=== PATIENT | male | born 1950 | race Caucasian/White ===

== ENCOUNTER 2025-03-27 08:20 | Emergency (ER) | payer MEDICARE, OTHER, SELFPAY ==
[2025-03-27 08:31] VITALS: BP 130/61; PULSE 84; RESP 18; TEMP 36.4; O2SAT 96; BMI 22.4
--- NOTE | 2025-03-27 08:47 | ED_ITS ---
HPI - Male Genitourinary General Chief complaint: Urogenital-Male Stated complaint: Possible UTI x 4 Months Time Seen by Provider: 03/27/25 08:29 Source: patient Mode of arrival: Ambulatory History of Present Illness HPI Narrative: Patient is from [facility]. He sees a fermenter champagne for AFib, is on Eliquis. Patient sees a urologist there as well for BPH. Patient denies any history of prostate cancer. Patient complains of urinary frequency and urgency for the past 4 months. He was on antibiotics by his urologist 3 months ago. He saw no improvement. He has never had a cystoscopy. No prostate biopsy. No fever weight loss. No chills. Patient is on Flomax and Cialis. Prescribed by his urologist. Patient had cardiac ablation 3 months ago in [place] for AFib. Patient denies any hematuria. Patient states that if he drinks 48 oz of fluid a day he is urinating a lot without any discomfort. However feet does not drink as much then he will have continue frequency and urgency but now has dysuria with it. Related Data Previous Rx's Medication Instructions Recorded cefdinir 300 mg capsule 300 mg PO BID #14 caps 03/27/25 phenazopyridine 100 mg tablet 100 mg PO TID PRN pain 6 doses #6 03/27/25 (Pyridium) tabs Allergies Allergy/AdvReac Type Severity Reaction Status Date / Time oxytetracycline Allergy Verified 03/27/25 10:02 Penicillins Allergy Verified 03/27/25 10:02 Review of Systems Review of Systems Narrative: GENERAL: Negative chills, fatigue, malaise, fever, sweats. HEENT: Negative sinus pain, ear pain, sore throat RESPIRATORY: Negative dyspnea, cough CARDIOVASCULAR: Negative chest pain, palpitations GASTROINTESTINAL: Negative vomiting, nausea, abdominal pain : Positive dysuria, frequency, negative hematuria MUSCULOSKELETAL: Negative muscle or bony pain SKIN: Negative rash, skin lesions NEUROLOGIC: Negative weakness, numbness ROS Unobtainable: All systems reviewed & are unremarkable except as noted in HPI and below Patient History Social History Smoking Status: Never smoker Smoking Status: Never smoker Exam Narrative Exam Narrative: GENERAL: in no distress, not toxic not dyspneic HEAD: Normocephalic. EYES: Pupils equal round ENT: Mucous membranes moist. NECK: Trachea midline. CARDIOVASCULAR: Regular rate and rhythm RESPIRATORY: Clear to auscultation. Breath sounds equal bilaterally. No wheezes, rales, or rhonchi. GASTROINTESTINAL: Abdomen soft, non-tender, no peritoneal signs no suprapubic tenderness. No CVA tenderness. No guarding no rebound. Abdomen is soft flat nontender. No pain out of portion of the exam EXTREMITIES: No gross deformities. BACK: No flank tenderness. NEURO: AOx4. Clear speech SKIN: Warm and dry PSYCH: Not anxious, is cooperative Initial Vital Signs Initial Vital Signs: Vital Signs Temperature 97.6 F 03/27/25 08:31 Pulse Rate 84 03/27/25 08:31 Respiratory Rate 18 03/27/25 08:31 Blood Pressure 130/61 03/27/25 08:31 Pulse Oximetry 96 03/27/25 08:31 Oxygen Delivery Method Room Air 03/27/25 08:31 Course Orders Ordered: Discontinued Medications Cefdinir (Cefdinir 300 Mg Capsule) 300 mg PO NOW ONE Stop: 03/27/25 09:48 Last Admin: 03/27/25 10:04 Dose: 300 mg Documented By: JONATHON Sodium Chloride (Normal Saline 0.9%) 500 mls @ 1,000 mls/hr IV BOLUS ONE Stop: 03/27/25 09:16 Last Infusion: 03/27/25 10:07 Dose: Infused Documented By: Admin: 03/27/25 09:39 Dose: 1,000 mls/hr Documented By: ALETHA Ondansetron HCl (Ondansetron 4 Mg/2 Ml Inj) 4 mg IV NOW PRN PRN Reason: Nausea And Vomiting Ondansetron HCl (Ondansetron 4 Mg Odt) 4 mg PO NOW PRN PRN Reason: Nausea And Vomiting Phenazopyridine HCl (Phenazopyridine 100 Mg Tablet) 100 mg PO NOW ONE Stop: 03/27/25 09:48 Last Admin: 03/27/25 10:03 Dose: 100 mg Documented By: JONATHON Vital Signs Vital signs: Vital Signs - 8 hr 03/27/25 08:31 Temperature 97.6 F Pulse Rate 84 Respiratory Rate 18 Blood Pressure 130/61 Pulse Oximetry 96 Oxygen Delivery Method Room Air MDM - Male Genitourinary Lab Data 03/27/25 09:00 03/27/25 09:00 Labs: Lab Results 03/27/25 03/27/25 Range/Units 08:36 09:00 WBC 4.9 (4.5-11.0) X10^3/uL RBC 4.39 L (4.5-5.9) X10^6/uL Hgb 13.9 (13.5-17.5) g/dL Hct 41.5 (41-53) % MCV 94.6 (80-100) fL MCH 31.8 (26-34) PG MCHC 33.6 (30-36) % RDW 13.4 (11.6-14.8) % Plt Count 165 (150-400) X10^3/uL Neut % (Auto) 57.8 (50-75) % Lymph % (Auto) 21.5 L (25-40) % Phelps % (Auto) 16.4 H (3-14) % Eos % (Auto) 3.0 (2-4) % Baso % (Auto) 1.3 (0-2) % Neut # (Auto) 2800 (9855-6600) /uL Lymph # (Auto) 1000 L (5716-7490) /uL Phelps # (Auto) 800 (0-900) /uL Eos # (Auto) 100 (0-450) /uL Baso # (Auto) 100 (0-100) /uL Sodium 139 (137-145) mmol/L Potassium 3.5 (3.4-5.1) mmol/L Chloride 106 (98-107) mmol/L Carbon Dioxide 27 (22-32) mmol/L BUN 16 (9-20) mg/dL Creatinine 0.67 (0.66-1.25) mg/dL Estimated GFR > 60 (>60) mL/min BUN/Creatinine Ratio 23.9 H (6-22) Glucose 109 H (70-99) mg/dL Calcium 9.2 (8.4-10.2) mg/dL Total Bilirubin 1.0 (0.2-1.3) mg/dL AST 39 (17-59) IU/L ALT 33 (<50) IU/L Alkaline Phosphatase 86 (38-126) U/L Total Protein 6.7 (6.3-8.2) g/dL Albumin 4.2 (3.5-5.0) g/dL Globulin 2.5 (1.7-4.1) g/dL Albumin/Globulin Ratio 1.7 (1.0-2.8) Urine RBC None seen (0-5/HPF) Urine WBC 10-30/hpf H (0-5/HPF) Ur Squamous Epith Cells 0-1 /hpf (0-5/HPF) Urine Bacteria Many (>30) H (None) Ur Culture Indicated? Specimen cultured Vol Urine Centrifuged 10ml (spun) Urine Dip Bedside Urine Glucose Negative Bedside Urine Bilirubin - Negative Bedside Urine Ketone - Negative Urine Specific [place] 1.020 Bedside Urine Occult Blood + Bedside Urine pH 6.0 Bedside Urine Protein - Negative Bedside Urine Urobilinogen - Negative Bedside Urine Nitrite + Positive Bedside Urine Leukocytes + [address] scan - abdomen/pelvis: Radiologist's Impression: [address] [address] [address] Scan Report Signed Patient: Abdirahman Delgado MR#: [id number] : 1950 Acct:[id number] Age/Sex: 74 / M Date of Service: 03/27/25 Loc: ED Accession Number: [id number] Procedure: CT abdomen pelvis w con Ordering Provider: Abdirahman Castro MD PROCEDURE: CT ABDOMEN PELVIS W CON INDICATIONS: IV contrast only/lower abdominal pain TECHNIQUE: After the administration of intravenous contrast, axial sections acquired from the lung bases to the pubic symphysis. Coronal and sagittal reformats were performed. For radiation dose reduction, the following was used: automated exposure control, adjustment of mA and/or kV according to patient size. COMPARISON: None. FINDINGS: Image quality: Diagnostic. Lower Chest: No significant findings. Minimal linear stranding at each lower lobe. ABDOMEN: Liver: No solid mass. Gallbladder: No radiopaque gallstones or wall thickening. Biliary ducts: No biliary dilation. Pancreas: No ductal dilation. Spleen: Size is within normal limits. Adrenal Glands: No adrenal nodules. Kidneys and Ureters: No hydronephrosis. No solid mass. No complex renal cystic lesion which requires follow up. Stomach and Bowel: Normal colonic caliber, without significant wall thickening. What appears to be a 1.8 cm maximal dimension radiodense structure is present within the gastric antral region, perhaps a ingested pill. Peritoneum: No abnormal intraperitoneal fluid. No free air. Ventral Wall: No significant ventral hernia. Abdominal Nodes: No retroperitoneal or mesenteric adenopathy by size criteria. Vessels: Aorta and inferior vena cava are normal in size. PELVIS: Pelvic Organs: Unremarkable. Bladder: There is slight asymmetric right lateral bladder wall thickening and a thin mucosal increase in radiodensity associated. Pelvic Nodes: No enlarged lymph nodes. Miscellaneous: No inguinal hernias are seen. Diverticulitis or appendicitis is not found. A normal or abnormal appendix could not be located. Bones: No aggressive osseous abnormality. IMPRESSION: 1. 1.8 cm radiodensity within the gastric antrum, likely a relatively large ingested pill. 2. Diverticulitis or appendicitis could not be located. A normal or abnormal appendix was not found. 3. No hydronephrosis or nephrolithiasis. Note was made of a subtle pattern of asymmetric right-sided lateral bladder wall thickening and slight increased radiodensity along the bladder mucosal surface in that area. Please correlate for presence of hematuria or urinary tract infection. Dictated by: Moses Phan M.D. on 03/27/2025 at 9:22 Approved by: Moses Phan M.D. on 03/27/2025 at 9:38 [facility] Narrative Medical decision making narrative: Patient is from [facility]. He sees a fermenter champagne for AFib, is on Eliquis. Patient sees a urologist there as well for BPH. Patient denies any history of prostate cancer. Patient complains of urinary frequency and urgency for the past 4 months. He was on antibiotics by his urologist 3 months ago. He saw no improvement. He has never had a cystoscopy. No prostate biopsy. No fever weight loss. No chills. Patient is on Flomax and Cialis. Prescribed by his urologist. Patient had cardiac ablation 3 months ago in [place] for AFib. Patient denies any hematuria. Patient states that if he drinks 48 oz of fluid a day he is urinating a lot without any discomfort. However feet does not drink as much then he will have continue frequency and urgency but now has dysuria with it. After history and exam, CBC CMP urinalysis CT abdomen pelvis [facility] Medical records reviewed: No recent visit for this complaint here Differential considered: Includes but not limited to cystitis UTI pyelonephritis prostatitis BPH Lab Test results independently reviewed as above. Pertinent findings: Urinalysis positive leukocyte esterase positive nitrite, WBC 4.9 hemoglobin 13.9, BUN 16 creatinine 0.67 GFR greater than 60 Imaging studies independently reviewed: CT abdomen pelvis bladder thickening noted. Consultations: None indicated Re-evaluations: 9:50 a.m.. Patient doing well. Reviewed results with patient. Treating for cystitis/UTI. Patient is traveling through at this time. He is heading towards [place], he is just passing through here. He will be returning to [place] in 1 month. Discussion: Appropriate for discharge home. Return precautions reviewed with patient. Exam is reassuring. Antibiotics have been started. Return precautions reviewed. He desires discharge home. Diagnosis: Cystitis UTI Discharge Plan Departure Patient Disposition: Home Clinical Impression: Cystitis Instructions: DI for Urinary Tract Infection (UTI), DI for Acute Cystitis Activity Restrictions/Additional Instructions: You are being treated for cystitis/urinary tract infection with antibiotics. Please see your urologist when you return home. Keep well hydrated. Return if worse or if any questions or concerns. Prescriptions have been printed for you to get filled today. First dosing was given this morning. Return if worse if any questions or concerns Prescriptions: New phenazopyridine [Pyridium] 100 mg tablet 100 mg PO TID PRN (Reason: pain) Qty: 6 0RF cefdinir 300 mg capsule 300 mg PO BID Qty: 14 0RF Stand Alone Forms: Patient Portal/API/Survey
[2025-03-27 09:08] LABS: Add Manual Diff / Slide Review NO; Basophils Absolute Auto 100 /uL (0-100); Basophils Percent Auto 1.3 % (0-2); Eosinophils Absolute Auto 100 /uL (0-450); Hematocrit 41.5 % (41-53); Hemoglobin 13.9 g/dL (13.5-17.5); Lymphocytes Absolute Auto 1000 /uL (1100-4500); Lymphocytes Percent Auto 21.5 % (25-40); Mean Corpuscular HGB Conc 33.6 % (30-36); Mean Corpuscular Hemoglobin 31.8 PG (26-34); Mean Corpuscular Volume 94.6 fL (80-100); Monocytes Absolute Auto 800 /uL (0-900); Monocytes Percent Auto 16.4 % (3-14); Neutrophils Absolute Auto 2800 /uL (1500-7000); Neutrophils Percent Auto 57.8 % (50-75); Platelet Count 165 X10^3/uL (150-400); Red Blood Cell Count 4.39 X10^6/uL (4.5-5.9); Red Cell Distribution Width 13.4 % (11.6-14.8); White Blood Cell Count 4.9 X10^3/uL (4.5-11.0)
[2025-03-27 09:21] LABS: Alanine Aminotransferase 33 IU/L (<50); Albumin 4.2 g/dL (3.5-5.0); Albumin Globulin Ratio 1.7 (1.0-2.8); Alkaline Phosphatase 86 U/L (38-126); Aspartate Aminotransferase 39 IU/L (17-59); BUN Creatinine Ratio 23.9 (6-22); Blood Urea Nitrogen 16 mg/dL (9-20); Calcium 9.2 mg/dL (8.4-10.2); Carbon Dioxide 27 mmol/L (22-32); Chloride 106 mmol/L (98-107); Estimated Glomerular Filt Rate > 60 mL/min (>60); Globulin 2.5 g/dL (1.7-4.1); Glucose 109 mg/dL (70-99); HEMOLYSIS < 15 (0-50); Potassium 3.5 mmol/L (3.4-5.1); Sodium 139 mmol/L (137-145); Total Protein 6.7 g/dL (6.3-8.2)
[2025-03-27 09:29] LABS: Bacteria Urine Many (>30); Culture Indicated Urine Specimen Cultured; RBC Urine None Seen (0-5/HPF); Squamous Epithelial Cell Urine 0-1 /HPF (0-5/HPF); Urine Volume 10mL (spun); WBC Urine 10-30/HPF (0-5/HPF)
[2025-03-27] MEDS: SODIUM CHLORIDE 0.9% 500 ML 1000 ML IV (09:39)
[2025-03-27 09:53] VITALS: BP 131/70; PULSE 70; RESP 18; O2SAT 100
[2025-03-27] MEDS: PHENAZOPYRIDINE 100 MG TABLET PO (10:03)
[2025-03-27] MEDS: CEFDINIR 300 MG CAPSULE PO (10:04)
== END 2025-03-27 10:13 | disposition home or self-care (01) ==
PROVIDERS: Emergency Provider Emergency Medicine
DX: N30.90 Cystitis, unspecified without hematuria (principal); I48.91 Unspecified atrial fibrillation; Z79.01 Long term (current) use of anticoagulants
CPT/HCPCS: 74177; 80053; 81003; 81015; 85025; 87077; 87086; 87186; 99284; Q9967